=== PATIENT | female | born 1995 | race Caucasian/White ===

== ENCOUNTER 2019-04-06 10:41 | Emergency (ER) | payer OTHER ==
[~2019-04-06] VITALS: Ht 162.6 cm; Wt 63.5 kg
[2019-04-06 10:45] VITALS: BP_SYST 101
--- NOTE | 2019-04-06 10:45 | NUR ---
Patient to ER bed 6 to gown for evaluation. Side rails up. Assumed care.
--- NOTE | 2019-04-06 10:45 | NUR ---
Patient arrived via POV, AAOx4, and ambulatory with steady gait. Patient c/c of nausea since Sunday, vomiting began yesterday and this AM. Patient states fever, chills, and abdominal pain associated. Patient states she is approximately 6 weeks . Will continue to follow up and monitor.
--- NOTE | 2019-04-06 10:47 | NUR ---
ER at bedside examining patient.
[2019-04-06] MEDS ORDERED: ONDANSETRON 4 MG ODT TAB PO ONE (11:00)
--- NOTE | 2019-04-06 11:02 | NUR ---
Patient given written and verbal discharge instructions and verbalizes understanding. ER MD discussed with patient the results and treatment provided. Patient in stable condition. ID arm band removed. Rx of Zofran given. Patient educated on pain management and to follow up with PMD. Pain Scale 0/10. Opportunity for questions provided and answered. Medication side effect fact sheet provided.
[2019-04-06 11:40] VITALS: BP_SYST 101
== END 2019-04-06 11:40 | disposition home or self-care (01) ==
LOC: SED 10:41
DX: O99.611 Diseases of the digestive system complicating pregnancy, first trimester (principal); Z3A.01 Less than 8 weeks gestation of pregnancy
CPT/HCPCS: 99283; Q0162